=== PATIENT | female | born 1970 | race Caucasian/White ===

== ENCOUNTER 2020-10-22 07:59 | Emergency (ER) | payer SELFPAY ==
[2020-10-22] MEDS ORDERED: SODIUM CHL 0.9% 50ML VIAL 12 ML, ALBUTEROL SULFATE NEBS 7.5 MG NEB ONE ×2 (08:05)
[2020-10-22] MEDS ORDERED: methylPREDNISolone SODIUM SUC 125 MG/2 ML VIAL IV ONE (08:08)
[2020-10-22] MEDS ORDERED: MAGNESIUM SULFATE PREMIX 2GM 50 ML IVPB ONE (08:08)
[2020-10-22] MEDS ORDERED: methylPREDNISolone SODIUM SUC 125 MG/2 ML VIAL ONE (08:08)
[2020-10-22] MEDS ORDERED: MAGNESIUM SULFATE PREMIX 2GM 2 GM in PREMIX BAG 1 BAG IVPB ONE (08:08)
--- NOTE | 2020-10-22 08:11 | ED.PDOC ---
History of Present Illness - General Stated Complaint: Hx of severe asthma. Intubated twice previously C/o SOB & wheezing since 0330 this am. No fever/chills. Cough prod clear phlegm. No known COVID expsoure. Time Seen by Provider: 10/22/20 08:03 Source: patient Exam Limitations: no limitations - History of Present Illness Timing/Duration: 4-6 hours Severity: severe Improving Factors: nothing Worsening Factors: nothing Associated Symptoms: nausea/vomiting - Nausea w/o vomiting Allergies/Adverse Reactions: Allergies NO KNOWN ALLERGY Allergy (Verified 10/22/20 08:17) Home Medications: Ambulatory Orders predniSONE 20 mg PO DAILY 5 Days #15 tab 10/22/20 Review of Systems - Review of Systems Constitutional: Denies: chills, fever EENTM: States: nose congestion. Denies: throat pain Respiratory: States: cough, short of breath, wheezing Cardiology: Denies: chest pain Gastrointestinal/Abdominal: States: nausea. Denies: vomiting Genitourinary: States: no symptoms reported Musculoskeletal: States: no symptoms reported Skin: States: no symptoms reported Neurological: States: no symptoms reported Endocrine: States: no symptoms reported Hematologic/Lymphatic: States: no symptoms reported Family Medical History - Family History Mother Family History: Unknown Physical Exam - Physical Exam General Appearance: Alert, Other - Moderate respiratory distress Eye Exam: bilateral normal Ears, Nose, Throat: hearing grossly normal, normal pharynx Neck: non-tender, full range of motion, supple, other - No JVD Respiratory: wheezing - Tight with poor air flow Cardiovascular/Chest: regular rate, rhythm Gastrointestinal/Abdominal: normal bowel sounds, non tender, soft, no organomegaly Back Exam: normal inspection Extremity: no pedal edema, no calf tenderness 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 FINDINGS: No consolidations, effusions, or edema. The heart size is not enlarged. AP portable technique causes magnification with some enlargement of the cardiac silhouette. IMPRESSION: NO ACUTE ABNORMALITY. Electronically signed by: Gregory Urias MD 10/22/2020 8:48 AM SENIOR OPERATIONS MANAGER 10/22/20 09:26 Correction of previous entry:The patient was given continuous nebulized treatments of DuoNeb rather than plain albuterol. At this time the patient is markedly improved. She feels mildly short of breath but much better than upon admission. Her lungs are clear and there is no wheezing. Pulse 114, sats 100% undergoing nebulization, respirations 20, blood pressure 132/85. 10/22/20 09:41 Breathing treatments have been completed. The patient feels better and is amenable to outpatient discharge. Lungs are clear without wheezing. 10/23/20 04:43 The Patient was treated with magnesium 2 g IV, Solu-Medrol 125 mg IV and the nebulized treatments as noted above. - Results/Orders Results/Orders: Vital Signs - 24 hr 10/22/20 08:05 Temperature 97.7 F Pulse Rate 123 H Pulse Rate [ 123 H pulse ox] Respiratory 24 Rate Blood Pressure 145/106 [Right Arm] O2 Sat by Pulse 97 Oximetry 10/22/20 08:04 cxr [Chest,1 View] [RAD] Stat 10/22/20 08:08 Magnesium Sulfate Premix 2Gm 2 gm Premix Bag 1 bag IVPB ONCE 10/22/20 08:09 CBC (AUTOMATED) W/AUTO DIFF Stat 10/22/20 08:10 CMP [COMPLETE METABOLIC PROFILE] Stat 10/22/20 08:16 RAPID SARS-CoV-2 RNA Stat 08:20 O2 by cannula, Cont Neb Albuterol, Solumedrol 125 IVP, Mag 2 gm IV. Laboratory Results - last 24 hr 10/22/20 10/22/20 08:15 08:15 WBC 10.6 RBC 4.72 Hgb 13.8 Hct 42.2 MCV 89.4 MCH 29.3 MCHC 32.7 L RDW 14.9 H Plt Count 318 MPV 9.1 Absolute Neuts (auto) 8.30 H Absolute Lymphs (auto) 1.40 Absolute Monos (auto) 0.70 Absolute Eos (auto) 0.20 Absolute Basos (auto) 0.10 Neutrophils % 78.1 H Lymphocytes % 13.1 L Monocytes % 6.5 Eosinophils % 1.6 Basophils % 0.7 Sodium 138 Potassium 3.6 Chloride 107 Carbon Dioxide 20 L Anion Gap 14.6 BUN 12 Creatinine 0.51 L BUN/Creatinine Ratio 23.5 H Random Glucose 134 H Serum Osmolality 277.4 Calcium 9.0 Total Bilirubin 0.3 AST 21 ALT 23 Alkaline Phosphatase 51 Serum Total Protein 7.4 Albumin 4.3 Globulin 3.1 Albumin/Globulin Ratio 1.4 Nasopharyngeal swabs for influenza a and B and COVID-19 were negative. Single view chest x-ray did not show any acute abnormalities. Vital Signs - 24 hr 10/22/20 10/22/20 10/22/20 08:04 08:05 09:00 Temperature 97.7 F 97.7 F Pulse Rate 116 H 115 H Pulse Rate [ 123 H 123 H 115 H pulse ox] Respiratory 28 H 28 H 22 Rate Blood Pressure 145/106 132/85 [Right Arm] O2 Sat by Pulse 98 100 Oximetry 10/22/20 10:00 Temperature 98.0 F Pulse Rate 106 H Pulse Rate [ 106 H pulse ox] Respiratory 20 Rate Blood Pressure 139/82 [Right Arm] O2 Sat by Pulse 96 Oximetry Departure - Departure Clinical Impression: Acute bronchospasm, Acute asthma Disposition: Discharge to Home or Self Care Condition: Good Departure Forms: ED Discharge - Pt. Copy Instructions: Asthma in Adults Diet: regular diet Prescriptions: predniSONE 20 mg PO DAILY 5 Days #15 tab Home Medications: Ambulatory Orders predniSONE 20 mg PO DAILY 5 Days #15 tab 10/22/20
[2020-10-22] MEDS ORDERED: IPRATROPIUM/ALBUTEROL 3 ML VIAL NEB ONE ×2 (08:32→08:34)
--- NOTE | 2020-10-22 08:49 | RAD ---
EXAM: Chest,1 View CLINICAL HISTORY: Asthma attack COMPARISON STUDY: None TECHNICAL: A single anteroposterior (AP) view of the chest was performed. FINDINGS: No consolidations, effusions, or edema. The heart size is not enlarged. AP portable technique causes magnification with some enlargement of the cardiac silhouette. IMPRESSION: NO ACUTE ABNORMALITY. Electronically signed by: Gregory Urias MD 10/22/2020 8:48 AM [facility]
[2020-10-22 10:03] VITALS: BP 139/82; TEMP 98; O2SAT 96
== END 2020-10-22 10:00 | disposition home or self-care (01) ==
LOC: ER 07:59
DX: J45.901 Unspecified asthma with (acute) exacerbation (principal); R11.0 Nausea; Z20.822 Contact with and (suspected) exposure to COVID-19
CPT/HCPCS: 36415; 71045; 80053; 85025; 87502; 87635; 94644; J2930; J3475